=== PATIENT | female | born 1950 | race Caucasian/White ===

== ENCOUNTER 2021-01-09 10:56 | Emergency (ER) | payer MEDICARE, OTHER ==
[2021-01-09] MEDS ORDERED: Ondansetron 4 MG/2 ML SDV IVPUSH ONE (11:03)
[2021-01-09] MEDS ORDERED: Sodium Chloride 0.9% 10 ML Syringe FLUSH PRN (11:06)
[2021-01-09] MEDS ORDERED: Sodium Chloride 0.9% 1,000 ML IV SCH (11:15)
--- NOTE | 2021-01-09 11:30 | EDM.PDOC ---
ED HPI GENERAL MEDICAL PROBLEM - General Chief Complaint: Gastrointestinal Problem Stated Complaint: VOMITTING Time Seen by Provider: 01/09/21 11:20 Source of Information: Reports: Patient, Family, RN Notes Reviewed History Limitations: Reports: No Limitations - History of Present Illness INITIAL COMMENTS - FREE TEXT/NARRATIVE: Georgie presents today for complaints of nausea, vomiting, weakness and dehydration. She states since she had COVID19 last February, she has had a decreased appetite, cannot smell or taste much and has had a 50 lb weight loss. She reports episodes of vomiting about 3 to 4 times per week. She denies coffee ground or bloody emesis, black or tar like stools, fever, chills, headache, candelaria in bladder function or other concerns. Georgie was at her mothers services yesterday. - Related Data Allergies Allergy/AdvReac Type Severity Reaction Status Date / Time No Known Allergies Allergy Verified 01/09/21 11:02 Home Meds: Home Meds Albuterol Sulfate [Albuterol Sulfate Hfa] 2 puff INH Q4HR PRN 01/09/21 [History] Albuterol/Ipratropium [DuoNeb 3.0-0.5 MG/3 ML] 1 ampule INH Q6HR 01/09/21 [History] Aspirin [[place]] 1 tab PO DAILY 01/09/21 [History] Budesonide/Formoterol Fumarate [Budesonide-Formoterol 160-4.5] 2 puff INH BID 01/09/21 [History] Clopidogrel [Plavix] 1 tab PO DAILY 01/09/21 [History] Diclofenac Sodium [Voltaren 1% Gel] 4 gram TOP QID 01/09/21 [History] Hydrocodone/Acetaminophen [Hydrocodon-Acetaminophn 10-325] 1 tab PO Q6HR PRN 01/09/21 [History] LORazepam [Ativan] 1 tab PO BEDTIME 01/09/21 [History] Levothyroxine 1 tab PO DAILY 01/09/21 [History] Metoclopramide HCl [Reglan] 5 mg PO QID PRN 01/09/21 [History] Pot,Mag Citrate/Sodium Bicarb [Litholyte 10 Meq Packet] 1 tab PO DAILY 01/09/21 [History] Roflumilast [Daliresp] 1 tab PO DAILY 01/09/21 [History] Spironolactone [Aldactone] 1 tab PO DAILY 01/09/21 [History] Tiotropium [place] [Spiriva Respimat] 2 puff INH DAILY 01/09/21 [History] Torsemide [Demadex] 1 tab PO BID 01/09/21 [History] atorvaSTATin Calcium [Atorvastatin Calcium] 1 tab PO DAILY 01/09/21 [History] carvediloL [Carvedilol] 1 tab PO DAILY 01/09/21 [History] lisinopriL [Lisinopril] 1 tab PO DAILY 01/09/21 [History] Past Medical History Cardiovascular History: Reports: Hypertension, MD Respiratory History: Reports: COPD Endocrine/Metabolic History: Reports: Hypoparathyroidism - Past Surgical History Cardiovascular Surgical History: Reports: Coronary Artery Stent GI Surgical History: Reports: Cholecystectomy Female Surgical History: Reports: Hysterectomy Musculoskeletal Surgical History: Reports: Knee Replacement, Shoulder Surgery Social & Family History - Tobacco Use Tobacco Use Status *Q: Current Every Day Tobacco User Years of Tobacco use: 50 Packs/Tins Daily: 1 ED ROS GENERAL - Review of Systems Review Of Systems: See Below Constitutional: Reports: Weakness, Fatigue. Denies: Fever, Chills, Malaise HEENT: Reports: Ear Pain (Right ear pain, itching to ear canal - current treatment for right ear infection. ), Rhinitis, Sinus Problem (treatment for sinusitis 3 weeks ago with augmentin, Georgie reprots she feels like the infection has not gone away), Vertigo. Denies: Ear Discharge, Eye Discharge, Eye Pain, Hearing Loss, Nosebleed, Nose Pain, Throat Pain, Throat Swelling, Vision Change Respiratory: Reports: No Symptoms Cardiovascular: Reports: No Symptoms Endocrine: Reports: Fatigue GI/Abdominal: Reports: Anorexia, Decreased Appetite, Nausea, Vomiting. Denies: Abdominal Pain, Black Stool, Bloody Stool, Constipation, Diarrhea, Difficulty Swallowing, Distension, Hematemesis, Hematochezia, Melena, Stool Incontinence : Reports: No Symptoms Musculoskeletal: Reports: No Symptoms Skin: Reports: No Symptoms Neurological: Reports: No Symptoms Psychiatric: Reports: Depression ( of mother, difficulty with family member s over her mother's estate) Hematologic/Lymphatic: Reports: No Symptoms Immunologic: Reports: No Symptoms ED EXAM, GI/ABD - Physical Exam Exam: See Below Exam Limited By: No Limitations General Appearance: Alert, WD/WN, Mild Distress Eyes: Bilateral: Normal Appearance, EOMI Ears: Hearing Grossly Normal, Other (Left Ear canal and TM normal without erythema or drainage. Right TM dull, retracted, erythema and flaking of ear canal with edema, pain with examination. No drainage noted. ). No: Normal TMs Nose: Normal Inspection, Normal Mucosa, No Blood Throat/Mouth: Normal Lips, Normal Gums, Normal Voice, No Airway Compromise, Other (dry mucus membranes) Head: Atraumatic, Normocephalic, Facial Tenderness, Sinus Tenderness, Other (treatment of sinusitis 3 weeks ago with augmentin). No: Facial Swelling Neck: Normal Inspection, Supple, Non-Tender, Full Range of Motion. No: Lymp hadenopathy (R), Lymphadenopathy (L) Respiratory/Chest: No Respiratory Distress, Lungs Clear, Normal Breath Sounds, No Accessory Muscle Use, Chest Non-Tender. No: Crackles, Rales, Rhonchi, Wheezing Cardiovascular: Normal Peripheral Pulses, Regular Rate, Rhythm, No Edema, No Gallop, No Murmur GI/Abdominal Exam: Normal Bowel Sounds, Soft, Non-Tender, No Organomegaly, No Distention, No Mass. No: Guarding, Rigid, Rebound, Tender (Female) Exam: Deferred Rectal (Female) Exam: Deferred Back Exam: Normal Inspection, Full Range of Motion. No: CVA Tenderness (R), CVA Tenderness (L) Extremities: Normal Inspection, Normal Range of Motion, Non-Tender, No Pedal Edema, Normal Capillary Refill Neurological: Alert, Oriented, Normal Cognition, No Motor/Sensory Deficits Psychiatric: Normal Affect, Depressed Mood, Tearful, Other (Georgie denies suicidal/homicidal ideation or plan. ) Skin Exam: Warm, Dry, Intact, Normal Color, No Rash Lymphatic: No Adenopathy Course - Vital Signs Last Recorded V/S: Last Vital Signs Temp 36.6 C 01/09/21 11:26 Pulse 96 01/09/21 11:26 Resp 14 01/09/21 11:26 BP 123/63 01/09/21 11:26 Pulse Ox 96 01/09/21 11:26 - Orders/Labs/Meds Orders: Active Orders 24 hr Category Date Time Status CULTURE URINE [RM] Stat Lab 01/09/21 15:14 Received Saline Lock Insert [OM.PC] Routine Oth 01/09/21 11:06 Ordered Labs: Laboratory Tests 01/09/21 01/09/21 01/09/21 Range/Units 11:30 11:30 12:43 WBC 7.2 (4.5-11.0) K/uL RBC 4.92 (3.30-5.50) M/uL Hgb 13.4 (12.0-15.0) g/dL Hct 43.2 (36.0-48.0) % MCV 88 (80-98) fL MCH 27 (27-31) pg MCHC 31 L (32-36) % Plt Count 209 (150-400) K/uL Neut % (Auto) 70.6 H (36-66) % Lymph % (Auto) 16.6 L (24-44) % [place] % (Auto) 8.4 H (2-6) % Eos % (Auto) 4.1 H (2-4) % Baso % (Auto) 0.3 (0-1) % Sodium 137 L (140-148) mmol/L Potassium 4.0 (3.6-5.2) mmol/L Chloride 99 L (100-108) mmol/L Carbon Dioxide 28 (21-32) mmol/L Anion Gap 14.0 (5.0-14.0) mmol/L BUN 7 (7-18) mg/dL Creatinine 1.0 (0.6-1.0) mg/dL Est Cr Clr Drug Dosing 43.30 mL/min Estimated GFR (MDRD) 55 L (>60) Glucose 129 H (74-106) mg/dL Calcium 9.3 (8.5-10.1) mg/dL Magnesium 1.7 L (1.8-2.4) mg/dL Total Bilirubin 0.5 (0.2-1.0) mg/dL AST 14 L (15-37) U/L ALT 28 (12-78) U/L Alkaline Phosphatase 111 (46-116) U/L Total Protein 6.4 (6.4-8.2) g/dL Albumin 3.1 L (3.4-5.0) g/dL Globulin 3.3 (2.3-3.5) g/dL Albumin/Globulin Ratio 0.9 L (1.2-2.2) TSH, Ultra Sensitive 0.140 L (0.358-3.740) uIU/mL Urine Color (YELLOW) Urine Appearance (CLEAR) Urine pH (5.0-8.0) Ur Specific Williams (1.008-1.030) Urine Protein (NEGATIVE) mg/dL Urine Glucose (UA) (NEGATIVE) mg/dL Urine Ketones (NEGATIVE) mg/dL Urine Occult Blood (NEGATIVE) Urine Nitrite (NEGATIVE) Urine Bilirubin (NEGATIVE) Urine Urobilinogen (0.2-1.0) EU/dL Ur Leukocyte Esterase (NEGATIVE) Urine RBC (0-5) Urine WBC (0-5) Ur Epithelial Cells Amorphous Sediment Urine Bacteria Urine Mucus 01/09/21 Range/Units 13:07 WBC (4.5-11.0) K/uL RBC (3.30-5.50) M/uL Hgb (12.0-15.0) g/dL Hct (36.0-48.0) % MCV (80-98) fL MCH (27-31) pg MCHC (32-36) % Plt Count (150-400) K/uL Neut % (Auto) (36-66) % Lymph % (Auto) (24-44) % [place] % (Auto) (2-6) % Eos % (Auto) (2-4) % Baso % (Auto) (0-1) % Sodium (140-148) mmol/L Potassium (3.6-5.2) mmol/L Chloride (100-108) mmol/L Carbon Dioxide (21-32) mmol/L Anion Gap (5.0-14.0) mmol/L BUN (7-18) mg/dL Creatinine (0.6-1.0) mg/dL Est Cr Clr Drug Dosing mL/min Estimated GFR (MDRD) (>60) Glucose (74-106) mg/dL Calcium (8.5-10.1) mg/dL Magnesium (1.8-2.4) mg/dL Total Bilirubin (0.2-1.0) mg/dL AST (15-37) U/L ALT (12-78) U/L Alkaline Phosphatase (46-116) U/L Total Protein (6.4-8.2) g/dL Albumin (3.4-5.0) g/dL Globulin (2.3-3.5) g/dL Albumin/Globulin Ratio (1.2-2.2) TSH, Ultra Sensitive (0.358-3.740) uIU/mL Urine Color Yellow (YELLOW) Urine Appearance Slightly cloudy A (CLEAR) Urine pH 7.5 (5.0-8.0) Ur Specific [place] 1.020 (1.008-1.030) Urine Protein Negative (NEGATIVE) mg/dL Urine Glucose (UA) Negative (NEGATIVE) mg/dL Urine Ketones Negative (NEGATIVE) mg/dL Urine Occult Blood Negative (NEGATIVE) Urine Nitrite Positive H (NEGATIVE) Urine Bilirubin Negative (NEGATIVE) Urine Urobilinogen 0.2 (0.2-1.0) EU/dL Ur Leukocyte Esterase Trace H (NEGATIVE) Urine RBC Not seen (0-5) Urine WBC 5-10 H (0-5) Ur Epithelial Cells Rare Amorphous Sediment Not seen Urine Bacteria Many Urine Mucus Not seen Noted acute UTI, hypothyroidism, dehydration, sinusitis, right otitis externa. Depression/fatigue per patient, we will also check magnesium and TSH levels. Meds: Medications Discontinued Medications Generic Name Dose Route Start Last Admin Trade Name Carlitoq PRN Reason Stop Dose Admin Acetaminophen 1,000 mg 01/09/21 14:33 01/09/21 14:55 Acetaminophen 500 Mg Tab PO 01/09/21 14:34 1,000 mg ONETIME ONE Administration Hydromorphone HCl 0.5 mg 01/09/21 14:33 01/09/21 14:55 Hydromorphone 0.5 Mg/0.5 Ml Syringe IVPUSH 01/09/21 14:34 0.5 mg ONETIME ONE Administration Sodium Chloride 1,000 mls @ 500 mls/hr 01/09/21 11:15 01/09/21 11:14 Normal Saline IV 500 mls/hr ASDIRECTED VIANNEY Administration Lactated Ringer's 1,000 mls @ 500 mls/hr 01/09/21 12:45 01/09/21 14:56 Ringers, Lactated IV 500 mls/hr ASDIRECTED VIANNEY Administration Meclizine HCl 25 mg 01/09/21 12:09 01/09/21 12:12 Meclizine 25 Mg Tab PO 01/09/21 12:10 25 mg ONETIME ONE Administration Metoclopramide HCl 5 mg 01/09/21 13:41 01/09/21 14:55 Metoclopramide 10 Mg/2 Ml Sdv IV 01/09/21 13:42 5 mg ONETIME ONE Administration Ondansetron HCl 4 mg 01/09/21 11:03 01/09/21 11:14 Ondansetron 4 Mg/2 Ml Sdv IVPUSH 01/09/21 11:04 4 mg ONETIME ONE Administration Sodium Chloride 10 ml 01/09/21 11:06 01/09/21 11:14 Sodium Chloride 0.9% 10 Ml Syringe FLUSH 10 ml ASDIRECTED PRN Administration Keep Vein Open - Re-Assessments/Exams Free Text/Narrative Re-Assessment/Exam: 01/09/21 12:05 Georgie reports she feels a little better after zofran IV. She was assisted with repositioning, noted vertigo type symptoms. Meclizine ordered. 01/09/21 13:35 Mg 1.7, TSH 0.140 Patient notified, she reports she feels better but continues to have nausea. We will administer Reglan 5mg IV, 1000ml lactated ringers. 01/09/21 14:35 Patient complains of headache and ongoing sinus pressure. Vital signs stable, no fever. We will provide acetaminophen PO, dilaudid IV for pain. Treat acute urinary tract infection, sinusitis with levofloxacin 500mg PO daily for 5 days with close follow up with primary provider. Ciprodex ear drops for right otitis media. Levofloxacin and ciprodex ear drops telephoned in to [facility] for patient. 01/09/21 15:22 Patient provided apple sauce and green jello. 01/09/21 17:00 No vomiting after apple sauce and jello. Patient may be discharged to home. 01/09/21 18:20 Patient reports she feels better, able to ambulate without difficulty, no vomiting. Departure - Departure Time of Disposition: 17:00 Disposition: Home, Self-Care 01 Condition: Good Clinical Impression: Sinusitis, Otitis externa of right ear, Nausea & vomiting, Dehydration, Urinary tract infection - Discharge Information Instructions: Sinusitis, Adult, [id number], Otitis Externa, Dehydration, Adult, [id number], Nausea and Vomiting, Adult Referrals: [facility] [Other] Forms: ED Department Discharge Additional Instructions: You have been evaluated and treated for nausea, vomiting, dehydration, acute urinary tract infection, sinusitis and right otitis externa. You were given ondansetron and metoclopramide IV for nausea, 2000ml IV fluids for dehydration, acetaminophen and dilaudid for pain. Your TSH today was 0.140-do not take your levothyroxine Tuesday or Tuesday, then telephone your provider on Tuesday for direction, a follow up appointment and any other concerns. Keep yourself hydrated, water and sugar free gatorade. Take your current medication as prescribed. Make sure to take you metoclopramide every 8 hours as this helps with nausea significantly. Take acetaminophen as needed for pain/fever. Take levofloxacin 500mg by mouth once a day for 5 days for sinusitis. Work on eating three small meals and three small snacks per day to help with your weight loss, strength and to improve your appetite. Follow up with your primary provider On Tuesday and for a recheck in 3 to 7 days. Report to the nearest emergency room for any worsening, issues or concerns. Sepsis Event Note (ED) - Evaluation Sepsis Screening Result: No Definite Risk - Focused Exam Vital Signs: Vital Signs Temp Pulse Resp BP Pulse Ox 01/09/21 11:26 36.6 C 96 14 123/63 96 - My Orders Last 24 Hours: My Active Orders 01/09/21 11:06 Saline Lock Insert [OM.PC] Routine 01/09/21 15:14 CULTURE URINE [RM] Stat - Assessment/Plan Last 24 Hours: My Active Orders 01/09/21 11:06 Saline Lock Insert [OM.PC] Routine 01/09/21 15:14 CULTURE URINE [RM] Stat Assessment:: Sinusitis, Otitis externa of right ear, Nausea & vomiting, Dehydration, Urinary tract infection Georgie is an alert and oriented 70 year old female with presenting complaints of nausea, vomiting, weakness and dehydration. She also complains of decreased appetite, cannot smell or taste much and has had a 50 lb weight loss since she had COVID19 February 2020. She reports episodes of vomiting about 3 to 4 times per week. Noted sinusitis, Otitis externa of right ear, Nausea & vomiting, Dehydration, Urinary tract infection. She has been treated with IV fluids, antiemetic pain medication and oral antibiotic for infection. She will hop picker remaining oral antibiotic and ear drops at [facility] once discharged. She will continue home medications, work on diet, hydration and have close follow up with her primary provider. Patient and her daughter in agreement with plan. Plan: Patient evaluated and treated for nausea, vomiting, dehydration, acute urinary tract infection, sinusitis and right otitis externa. She was given ondansetron and metoclopramide IV for nausea, 2000ml IV fluids for dehydration, acetaminophen and dilaudid for pain. TSH today was 0.140-do not take levothyroxine Tuesday or Tuesday, telephone primary provider on Tuesday for direction, a follow up appointment and any other concerns. Keep hydrated, water and sugar free gatorade. Take current medication as prescribed. Make sure to take metoclopramide every 8 hours as this helps with nausea significantly. Take acetaminophen as needed for pain/fever. Take levofloxacin 500mg by mouth once a day for 5 days for sinusitis. Work on eating three small meals and three small snacks per day to help with your weight loss, strength and to improve your appetite. Follow up with primary provider on Tuesday and for a recheck in 3 to 7 days. Report to the nearest emergency room for any worsening, issues or concerns.
[2021-01-09] MEDS ORDERED: Meclizine 25 MG Tab PO ONE (12:09)
[2021-01-09] MEDS ORDERED: Lactated Ringers 1,000 ML IV SCH (12:45)
[2021-01-09] MEDS ORDERED: Metoclopramide 10 MG/2 ML SDV IV ONE (13:41)
[2021-01-09] MEDS ORDERED: Acetaminophen 500 MG Tab PO ONE (14:33)
[2021-01-09] MEDS ORDERED: HYDROmorphone 0.5 MG/0.5 ML Syringe IVPUSH ONE (14:33)
== END 2021-01-09 18:41 | disposition home or self-care (01) ==
LOC: JP.ED 10:56
DX: E86.0 Dehydration (principal); H60.91 Unspecified otitis externa, right ear; N39.0 Urinary tract infection, site not specified; J32.9 Chronic sinusitis, unspecified; R11.2 Nausea with vomiting, unspecified; I10 Essential (primary) hypertension; I25.2 Old myocardial infarction; J44.9 Chronic obstructive pulmonary disease, unspecified; E20.9 Hypoparathyroidism, unspecified; Z72.0 Tobacco use; Z79.82 Long term (current) use of aspirin; Z79.02 Long term (current) use of antithrombotics/antiplatelets; Z79.899 Other long term (current) drug therapy
CPT/HCPCS: 36415; 80053; 81001; 83735; 84443; 85025; 87086; 87088; 87186; 96374; 96375; 99284; A9270; J1170; J2405; J2765; J7030; J7120